=== PATIENT | male | born 1970 | race Caucasian/White ===

== ENCOUNTER 2017-09-10 20:54 | Emergency (ER) | payer OTHER ==
[~2017-09-10] VITALS: Ht 182.9 cm; Wt 87.5 kg
--- NOTE | 2017-09-10 21:03 | ED GI/GU/ABDOMINAL COMPLAINT ---
History of Present Illness General Chief Complaint: General Adult Stated Complaint: "ABD PAIN, CHILLS, LIGHT HEADED" Source: patient Exam Limitations: no limitations Vital Signs & Intake/Output Vital Signs & Intake/Output Vital Signs Date Time Temp Pulse Resp B/P B/P Pulse O2 O2 Flow FiO2 Mean Ox Delivery Rate 09/10 2058 97.0 92 18 160/84 97 Room Air Allergies Coded Allergies: No Known Drug Allergies (NKDA 09/10/17) Reconcile Medications Clonazepam 1 MG TABLET 1 TAB PO BIDP PRN anxiety eight... [id number] Triage Nurses Notes Reviewed? yes HPI: 46M PMH with 1 month of band like RUQ and LUQ pain that is intermittent and squeezing, not associated with eating or movement, and has an ultrasound scheduled for tomorrow. Today he had an episode of severe shaking chills and muscle pain in the afternoon after waking up from a nap. He is still having minor chills now. Of note, he has been tapering off of Duloxetine for the past month. Past History Travel History Traveled to [place] past 21 day No Medical History Any Pertinent Medical History? see below for history Gastrointestinal: GERD Psychiatric: anxiety Surgical History Surgical History: non-contributory Psychosocial History What is your primary language Albanian Tobacco Use: Quit >30 days ago ETOH Use: denies use Illicit Drug Use: denies illicit drug use Family History Hx Contributory? No Review of Systems Review of Systems Constitutional: Reports: no symptoms. EENTM: Reports: no symptoms. Respiratory: Reports: no symptoms. Cardiovascular: Reports: no symptoms. GI: Reports: see HPI. Genitourinary: Reports: no symptoms. Musculoskeletal: Reports: no symptoms. Skin: Reports: no symptoms. Neurological/Psychological: Reports: no symptoms. Hematologic/Endocrine: Reports: no symptoms. Immunologic/Allergic: Reports: no symptoms. All Other Systems: Reviewed and Negative Physical Exam Physical Exam General Appearance: well developed/nourished, no apparent distress (q) Head: atraumatic, normal appearance Eyes: Bilateral: normal appearance. Ears, Nose, Throat, Mouth: hearing grossly normal, moist mucous membrane Neck: normal inspection, supple, full range of motion Respiratory: normal breath sounds, chest non-tender, no respiratory distress Cardiovascular: regular rate/rhythm Gastrointestinal: soft, non-tender Rectal: deferred Back: normal inspection, normal range of motion Extremities: normal range of motion Neurologic/Psych: awake, alert, oriented x 3, normal mood/affect Skin: intact, normal color, warm/dry Core Measures ACS in differential dx? No Sepsis Present: No Sepsis Focused Exam Completed? No Progress Differential Diagnosis: AAA, AMI, appendicitis, biliary colic, bowel obstruction , colon cancer, cholecystitis, diverticulitis, epididymitis, esophageal varices, gastritis, hepatitis, hernia, hemorrhoids, ischemic bowel, inflamm bowel dis, Yolanda-Mati tear, orchitis, pancreatitis, prostatitis, peptic ulcer, PUD/GERD, perforated viscous, pyelonephritis, SBO, STD, testicular torsion, ureterolithiasis, urinary retention, urethritis, UTI/pyelo Plan of Care: Orders Procedure Date/time Status URINE DRUG SCREEN FOR ER ONLY 09/10 2200 Active RAPID VIRAL INFLUENZA A 09/10 2103 Complete URINALYSIS 09/10 2103 Active LIPASE 09/10 2103 Active COMPREHENSIVE METABOLIC PANEL 09/10 2103 Active CBC WITHOUT DIFFERENTIAL 09/10 2103 Complete AMYLASE 09/10 2103 Active Current Medications Sig/Marine Start time Last Medication Dose Stop Time Status Admin Acetaminophen 650 MG ONCE ONE 09/10 2144 UNVr (Tylenol) 09/10 2145 Ketorolac 30 MG ONCE ONE 09/10 2144 UNVr Tromethamine 09/10 2145 (Toradol) Sodium Chloride 1,000 ML BOLUS ONE 09/10 2144 UNVr (Normal Saline 0.9%) 09/10 234 Laboratory Tests 09/10/173: Sodium Pending, Potassium Pending, Chloride Pending, Carbon Dioxide Pending, Anion Gap Pending, BUN Pending, Creatinine Pending, BUN/Creatinine Ratio Pending , Glucose Pending, Calcium Pending, Total Bilirubin Pending, AST Pending, ALT Pending, Alkaline Phosphatase Pending, Total Protein Pending, Albumin Pending, Globulin Pending, Albumin/Globulin Ratio Pending, Amylase Pending, Lipase Pending, CBC w Diff NO MAN DIFF REQ, RBC 4.68 L, MCV 92.0, MCH 31.0, RDW 12.8, MPV 6.6 L, Gran % 66.2, Lymphocytes % 23.7, Monocytes % 7.8, Eosinophils % 1.8, Basophils % 0.5, Absolute Granulocytes 4.8, Absolute Lymphocytes 1.7, Absolute Monocytes 0.6, Absolute Eosinophils 0.1, Absolute Basophils 0, PUBS MCHC 33.7 Microbiology 09/10 2104 NASOPHARYN: Influenza Virus A & B Rapid Smear - COMP Initial ED EKG: none Departure Departure Disposition: HOME OR SELF CARE Condition: Stable Clinical Impression Primary Impression: Abdominal pain Secondary Impressions: Chills Departure Forms: Customer Survey General Discharge Information Prescriptions: Current Visit Scripts Clonazepam 1 TAB PO BIDP PRN anxiety #8 TAB eight... [id number]
[2017-09-10 21:41] LABS: ABSOLUTE BASOPHIL COUNT 0 /CUMM (0.0-0.2); ABSOLUTE EOSINOPHIL COUNT 0.1 /CUMM (0.0-0.7); ABSOLUTE GRANULOCYTE CT 4.8 /CUMM (1.4-6.5); ABSOLUTE LYMPH COUNT 1.7 /CUMM (1.2-3.4); ABSOLUTE MONOCYTE COUNT 0.6 /CUMM (0.10-0.60); BASOPHIL % 0.5 % (0.0-2.0); EOSINOPHIL % 1.8 % (0-5); HEMATOCRIT 43.1 % (42-52); MEAN CORPUSCULAR HGB CONC 33.7 G/DL (33.0-37.0); MEAN PLATELET VOLUME 6.6 FL (7.4-10.4); PLATELET COUNT 285 /CUMM (130-400); RBC DISTRIBUTION WIDTH 12.8 % (11.5-14.5); RED BLOOD CELL CT 4.68 /CUMM (4.70-6.10); WHITE BLOOD CELL COUNT 7.3 /CUMM (4.8-10.8)
[2017-09-10 21:57] LABS: GRANULOCYTE % 66.2 % (42.2-75.2)
[2017-09-11 00:43] VITALS: BP 138/71
[2017-09-11] MEDS ORDERED: CLONAZEPAM1 M2 PO (01:18)
== END 2017-09-11 01:44 ==
LOC: ERH 20:54
PROVIDERS: Internal Medicine
DX: R10.11 Right upper quadrant pain (principal); R10.12 Left upper quadrant pain; R68.83 Chills (without fever)
CPT/HCPCS: 80307; 81003; 87804; 87804-59; 96374; J1885